=== PATIENT | male | born 1980 | race Asian ===

== ENCOUNTER 2016-11-11 22:55 | Emergency (ER) | payer BC ==
[~2016-11-11] VITALS: Ht 180.3 cm; Wt 127.0 kg
== END 2016-11-11 23:40 | disposition home or self-care (01) ==
LOC: ED 22:55
DX: K02.9 Dental caries, unspecified (principal); R68.84 Jaw pain
CPT/HCPCS: 96372; 99282; J0696; J1885

== ENCOUNTER 2017-04-27 20:57 | Emergency (ER) | payer OTHER ==
[~2017-04-27] VITALS: Ht 180.3 cm; Wt 127.0 kg
== END 2017-04-27 22:52 | disposition home or self-care (01) ==
LOC: ED 20:57
DX: S40.021A Contusion of right upper arm, initial encounter (principal); S50.11XA Contusion of right forearm, initial encounter; S80.11XA Contusion of right lower leg, initial encounter; S70.11XA Contusion of right thigh, initial encounter; V43.52XA Car driver injured in collision with other type car in traffic accident, initial encounter
CPT/HCPCS: 99282